=== PATIENT | female | born 1945 | race Caucasian/White ===

== ENCOUNTER 2016-04-16 12:36 | Emergency (ER) | payer MEDICARE, OTHER ==
[2016-04-16] MEDS ORDERED: SODIUM CHLORIDE 0.9% 1,000 ML ONE (14:41)
== END 2016-04-16 15:39 | disposition other institution (70) ==
LOC: ER 12:36
DX: R07.2 Precordial pain (principal); R94.31 Abnormal electrocardiogram [ECG] [EKG]; Z79.899 Other long term (current) drug therapy
CPT/HCPCS: 36415; 71010; 80053; 82550; 83735; 84484; 85025; 85610; 85730; 93005